=== PATIENT | male | born 1965 | race African-American/Black ===

== ENCOUNTER 2017-04-23 02:59 | Emergency (ER) | payer SELFPAY ==
--- NOTE | ~2017-04-23 | CR211 ---
[facility] A Service of [facility] & [facility] RADIOLOGY TEXT RESULTS PATIENT: JACQUELINE BARRAZA LOCATION: [facility] : 63 UNIT #: [id number] AGE: [address]: NETO BLANCO APRN SEX: M ORDER DR: [id number] [facility] [address] [place], [place] [address] [id number] MR#: [id number] Acc #: [id number] NAME: JACQUELINE BARRAZA : 1965 SEX: M STUDY DATE/TIME: 04/23/2017 4:55 UNIT: [facility] ROOM: STUDY DESCRIPTION: CR Ribs Uni 2 View W PA Ch Rt Attending Physician: Neto Blanco Aprn Ordering Physician: Neto Blanco Aprn Primary Care Physician: No Primary Care Physician MEDICAL IMAGING REPORT This report is preliminary unless electronic signature is present EXAM Right ribs, 5 views. HISTORY Right rib pain. Kicked in ribs today. FINDINGS Five views of the right ribs demonstrate no fracture. No pneumothorax or pleural effusion. IMPRESSION Negative right ribs. Dictated by... Kevin Prajapati M.D. THIS IS AN ELECTRONICALLY VERIFIED REPORT Kevin Prajapati M.D. at 04/24/2017 4:51 AM DIANNA/jordan TD: 04/24/2017 00:23 JOB #: [id number] MEDICAL IMAGING REPORT Page 1 of 1 COPY
== END 2017-04-23 06:30 | disposition home or self-care (01) ==
LOC: CED 02:59
DX: S20.211A Contusion of right front wall of thorax, initial encounter (principal); S60.511A Abrasion of right hand, initial encounter; I10 Essential (primary) hypertension; F17.210 Nicotine dependence, cigarettes, uncomplicated; Z88.0 Allergy status to penicillin; Y04.0XXA Assault by unarmed brawl or fight, initial encounter; Y92.410 Unspecified street and highway as the place of occurrence of the external cause; Z23 Encounter for immunization
CPT/HCPCS: 71101; 90471; 90715; 99284